=== PATIENT | male | born 1990 | race Caucasian/White ===

== ENCOUNTER 2018-02-26 19:40 | Emergency (ER) | payer SELFPAY ==
[2018-02-26 20:12] VITALS: BP 152/68; PULSE 78; RESP 20; TEMP 98.2; O2SAT 99
[2018-02-26] MEDS ORDERED: MORPHINE SULFATE 4 MG/ML INJ IV PUSH ONE (20:45)
[2018-02-26] MEDS ORDERED: ONDANSETRON HCL 4 MG/2 ML VIAL IV PUSH ONE (20:45)
[2018-02-26] MEDS ORDERED: TETANUS/DIPHTHERIA TOXOID ADULT 0.5 ML VIAL IM ONE (20:45)
[2018-02-26] MEDS ORDERED: LIDOCAINE HCL 1% PF 30 ML VIAL INFIL ONE (20:45)
--- NOTE | 2018-02-26 20:52 | PD ---
HPI Chief Complaint: Injury Time Seen by Provider: 20:29 Travel History International Travel<30 days: No Contact w/Intl Traveler<30days: No Traveled to known affect area: No History of Present Illness HPI This is a 28-year-old male who presents for evaluation of left arm pain. 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 Today he reports that he was holding onto a rope which was tied around a tree branch. As the tree branch cut and felt it pulled him up and around a tree and hit his left forearm against a 4 x 4 piece of wood and hit his dorsal left hand against the chin roof. Denies head trauma or loss of consciousness. He is complaining of left forearm pain, skin wound to the dorsum of the left hand as well as left shoulder soreness. The pain is an aching pain which is worse with movement. Denies any numbness or tingling or weakness. Denies any neck pain or back pain. Denies any chest pain, shortness of breath, abdominal pain. Last tetanus vaccination unknown. No other complaints. PFSH Past Medical History Medical History: Denies Significant Hx Diminished Hearing: No Tetanus Vaccination: Unknown Influenza Vaccination: No Past Surgical History Surgical History: No Previous Surgery Social History Alcohol Use: Yes (occasionally) Tobacco Use: Yes (1 ppd) Substance Use: No Allergies-Medications (Allergen,Severity, Reaction): Coded Allergies: No Known Allergies (Unverified , 02/26/18) Reported Meds & Prescriptions Reported Meds & Active Scripts Active Ibuprofen 800 Mg Tab 800 Mg PO Q6HR PRN Hydrocodone-Acetaminophen 5-325 mg Tab 1 Tab PO Q6H PRN Review of Systems Except as stated in HPI: all other systems reviewed are Neg Physical Exam Narrative GENERAL: Well-developed well-nourished male in no acute distress SKIN: Warm and dry. Dried blood on the dorsum of the left hand. Abrasion noted along the dorsal surface of the left forearm as well as an abrasion to the posterior left elbow. HEAD: Atraumatic. Normocephalic. EYES: Pupils equal and round. No scleral icterus. No injection or drainage. ENT: No nasal bleeding or discharge. Mucous membranes pink and moist. NECK: Trachea midline. No JVD. CARDIOVASCULAR: Regular rate and rhythm. No murmur appreciated. RESPIRATORY: No accessory muscle use. Clear to auscultation. Breath sounds equal bilaterally. GASTROINTESTINAL: Abdomen soft, non-tender, nondistended. Hepatic and splenic margins not palpable. MUSCULOSKELETAL: No obvious deformities. Generalized tenderness to palpation the left forearm and left hand. The patient has pain with supination pronation of the left wrist. Capillary refill less than 2 seconds all digits left hand. 2+ radial pulse but the patient has full flexion and extension of all 5 digits of the left hand. NEUROLOGICAL: Awake and alert. No obvious cranial nerve deficits. Motor grossly within normal limits. Normal speech. Data Data Last Documented VS Vital Signs Date Time Temp Pulse Resp B/P (MAP) Pulse Ox O2 Delivery O2 Flow Rate FiO2 02/26/18 20:12 98.2 78 20 152/68 (96) 99 Orders Orders Lidocaine Pf 1% Inj (Xylocaine-Mpf 1% In (02/26/18 20:45) Tetanus/Diphtheria Tox Adult (Tetanus/Di (02/26/18 20:45) Morphine Inj (Morphine Inj) (02/26/18 20:45) Ondansetron Inj (Zofran Inj) (02/26/18 20:45) Iv Access Insert/Monitor (02/26/18 20:36) Forearm (2vws) (02/26/18 ) Hand, Complete ([id number]) (02/26/18 ) Shoulder, Complete (>2vws) (02/26/18 ) Ed Discharge Order (02/26/18 21:46) Support Splint (02/26/18 21:46) Wound Care (02/26/18 21:46) MDM Medical Decision Making Medical Screen Exam Complete: Yes Emergency Medical Condition: Yes Medical Record Reviewed: Yes Differential Diagnosis Contusion, abrasion, laceration, sprain, strain, dislocation, fracture Narrative Course X-ray imaging left shoulder, forearm and hand will be obtained. Tetanus status updated. Morphine and Zofran administered. X-ray imaging of left forearm and shoulder are negative for acute process. X-ray of the left hand reveals CONCLUSION: Intact left hand. Small radiopaque foreign body of the pointer finger soft tissues. This is not consistent with his current injury and is likely old and is nontender. The patient declined pain medication. After the dorsum of the left hand was prepped with Betadine lidocaine was instilled in the area was irrigated and reveals 2 lacerations on the dorsum of the left hand. These were repaired with sutures, he verbally consented. He will be discharged after wound care and with a sling. Procedures Procedure Narrative LACERATION LOCATION: Dorsal left hand LENGTH: 1.5 cm NUMBER OF STITCHES/KENJI: 3 REPAIR: The area of the laceration was prepped with Betadine and sterilely draped. The laceration was infiltrated with 1% lidocaine. The wound was copiously irrigated and explored without evidence of foreign body, tendon injury or neurovascular injury. The wound was closed using 5-0 nylon simple interrupted. This was a single layer repair. A sterile dressing was applied. The patient was advised to keep the dressing clean and dry. Patient tolerated the procedure well. LACERATION LOCATION: Dorsal left hand LENGTH: 3 cm NUMBER OF STITCHES/KENJI: 8 REPAIR: The area of the laceration was prepped with Betadine and sterilely draped. The laceration was infiltrated with 1% lidocaine. The wound was copiously irrigated and explored without evidence of foreign body, tendon injury or neurovascular injury. The wound was closed using 5-0 nylon simple interrupted. This was a single layer repair. A sterile dressing was applied. The patient was advised to keep the dressing clean and dry. Patient tolerated the procedure well. Diagnosis Primary Impression: Forearm contusion Additional Impression: Laceration of left hand Departure Forms: Tests/Procedures, Work Release Special Instructions: Mr. Anderson has an injury to his left forearm and a laceration to his left hand. He will require light duty, not utilizing his left arm, for the next 10 days. Additional Instructions: Wash the wounds daily with soap and water and apply antibiotic cream and clean bandages. Minimize use of left hand to prevent wound dehiscence. Pain medication as needed. Do not drive or drink alcohol and taking Lortab. Ice to the affected area several times a day 15-20 minutes at a time. Return in approximately 10-14 days for suture removal. Med/Other Pt SpecificInfo: Prescription(s) given, Wound Care, Orthopedic Instructions Scripts Ibuprofen (Ibuprofen) 800 Mg Tab 800 MG PO Q6HR Y for PAIN, #40 TAB 0 Refills Prov: Peewee French MD 02/26/18 Hydrocodone-Acetaminophen (Hydrocodone-Acetaminophen) 5-325 mg Tab 1 TAB PO Q6H Y for PAIN, #12 TAB 0 Refills Prov: Peewee French MD 02/26/18 Disposition: 01 DISCHARGE HOME Condition: Stable Jose Lam Feb 26, 2018 20:52
--- NOTE | 2018-02-26 21:12 | RADRPT ---
EXAM DATE/TIME: 02/26/2018 20:47 [facility] COMPARISON: No previous studies available for comparison. INDICATIONS : Tree fell on left hand causing pain. MEDICAL HISTORY : None. SURGICAL HISTORY : None. ENCOUNTER: Initial ACUITY: 1 day PAIN SCORE: 5/10 LOCATION: Left Hand. FINDINGS: No fracture or subluxation seen of the left hand. No significant arthropathy demonstrated. Tiny radiopaque foreign body seen in the soft tissues palmar to the pointer finger middle phalanx. CONCLUSION: Intact left hand. Small radiopaque foreign body of the pointer finger soft tissues. Rasta Lr MD on February 26, 2018 at 21:08 Board Certified Radiologist. This report was verified electronically.
--- NOTE | 2018-02-26 21:13 | RADRPT ---
EXAM DATE/TIME: 02/26/2018 20:49 [facility] COMPARISON: No previous studies available for comparison. INDICATIONS : Tree fell on left forearm causing pain. MEDICAL HISTORY : None. SURGICAL HISTORY : None. ENCOUNTER: Initial ACUITY: 1 day PAIN SCORE: 9/10 LOCATION: Left Forearm. FINDINGS: Two view examination of the left forearm demonstrates no evidence of fracture or dislocation. Bony m ineralization is normal. The soft tissue structures are intact. CONCLUSION: Intact left radius and ulna. Rasta Lr MD on February 26, 2018 at 21:10 Board Certified Radiologist. This report was verified electronically.
--- NOTE | 2018-02-26 21:13 | RADRPT ---
EXAM DATE/TIME: 02/26/2018 20:52 [facility] COMPARISON: No previous studies available for comparison. INDICATIONS : Tree fell on left shoulder causing pain. MEDICAL HISTORY : None. SURGICAL HISTORY : None. ENCOUNTER: Initial ACUITY: 1 day PAIN SCORE: 6/10 LOCATION: Left Shoulder. FINDINGS: Multiple view examination of the left shoulder demonstrates no evidence of fracture or dislocation. The glenohumeral and acromioclavicular joints are maintained. There is normal range of motion betwee n internal and external rotation. Bony mineralization is normal. CONCLUSION: No fracture or subluxation demonstrated of the left shoulder. Rasta Lr MD on February 26, 2018 at 21:10 Board Certified Radiologist. This report was verified electronically.
[2018-02-26] MEDS ORDERED: HYDR-3516 PO (21:46)
[2018-02-26] MEDS ORDERED: IBUP1TAB7 PO (21:46)
[2018-02-26] MEDS ORDERED: IBUPROFEN 800 MG TAB PO ONE (22:15)
[2018-02-26] MEDS ORDERED: ACETAMINOPHEN/HYDROcodone 325 MG/5 MG TAB PO ONE (22:15)
== END 2018-02-26 22:33 | disposition home or self-care (01) ==
LOC: NEPD 19:40
DX: S50.12XA Contusion of left forearm, initial encounter (principal); S61.412A Laceration without foreign body of left hand, initial encounter; W22.8XXA Striking against or struck by other objects, initial encounter; Y93.H2 Activity, gardening and landscaping; Z23 Encounter for immunization
CPT/HCPCS: 12002; 73030; 73090; 73130; 90471; 90714; 99283; L3908